=== PATIENT | male | born 1965 | race Caucasian/White ===

== ENCOUNTER 2017-06-09 00:37 | Outpatient (CLI) | payer OTHER | END 2017-06-09 00:38 | disposition home or self-care (01) | LOC: LAB 00:37 | DX: Z01.89 Encounter for other specified special examinations (principal) | CPT/HCPCS: 36415 ==

== ENCOUNTER 2017-06-09 01:04 | Emergency (ER) | payer OTHER ==
[2017-06-09 01:10] VITALS: BP 134/83
--- NOTE | 2017-06-09 01:32 | ED Physician Documentation ---
PD HPI HEAD INJURY - Stated complaint Stated Complaint: FIT FOR CUSTODY - Chief complaint Chief Complaint: General - History obtained from History obtained from: Patient, Police - History of Present Illness Mechanism of head injury: Other (unknown) Location of injury: Right, Front Quality of pain: Other (denies pain) Associated symptoms: No: LOC Recently seen: Not recently seen - Additional information Additional information: patient brought to ED by police for legal blood draw. During the visit, it was determined that he was to be arrested and thus [id number] exam is requested. He has forehead laceration but he says he does not know how or when he got this laceration, and he denies any pain or BRIONES. He denies any symptoms to me, in general, on my HPI. Review of Systems Eyes: reports: Reviewed and negative Skin: reports: Laceration (s) (forehead) Neurologic: denies: Headache, LOC PD PAST MEDICAL HISTORY - Past Medical History Past Medical History: No - Past Surgical History Past Surgical History: No - Present Medications Home Medications: Ambulatory Orders Medication Instructions Recorded Confirmed "An Adhd Med" 06/09/17 - Allergies Allergies/Adverse Reactions: Allergies Allergy/AdvReac Type Severity Reaction Status Date / Time No Known Drug Allergies Allergy Verified 06/09/17 01:10 - Social History Does the pt smoke?: No Smoking Status: Never smoker Does the pt drink ETOH?: Yes Does the pt have substance abuse?: No - Immunizations Immunizations are current?: Yes - POLST Patient has POLST: No PD ED PE NORMAL - Vitals Vital signs reviewed: Yes - General General: Alert and oriented X 3, No acute distress, Well developed/nourished - HEENT HEENT: PERRL, EOMI - Neck Neck: Supple, no meningeal sign - Cardiac Cardiac: RRR, No murmur - Respiratory Respiratory: No respiratory distress, Clear bilaterally PD ED PE EXPANDED - HEENT HEENT Visual: 1 - laceration (1.5 cm superficial linear laceration) 2 - swelling Results - Vitals Vitals: Vital Signs - 24 hr 06/09/17 01:07 Temperature 36.1 C L Heart Rate 73 Respiratory 20 Rate Blood Pressure 134/83 H O2 Saturation 95 Oxygen O2 Source Room air Procedures - Laceration (location) Face right Length in cm: 1.5 Wound type: Linear Neurovascular status: Sensory intact, Motor intact Skin layer closure: Dermabond Other: Patient tolerated well, No complications, Neurovascular intact, Tetanus UTD Complexity: Simple PD MEDICAL DECISION MAKING - ED course Complexity details: considered differential, d/w patient Departure - Departure Disposition: 01 Home, Self Care Clinical Impression: Laceration of forehead Condition: Good Instructions: ED Laceration Facial Skin Glue Discharge Date/Time: 06/09/17 01:56
== END 2017-06-09 01:56 | disposition home or self-care (01) ==
LOC: ED 01:04
DX: S01.81XA Laceration without foreign body of other part of head, initial encounter (principal); X58.XXXA Exposure to other specified factors, initial encounter; Z02.89 Encounter for other administrative examinations
CPT/HCPCS: 12011; 36415; 99282; 99283